=== PATIENT | male | born 1985 | race Caucasian/White ===

== ENCOUNTER 2024-01-12 07:44 | Emergency (ER) | payer SELFPAY ==
[2024-01-12] VITALS (10 sets, daily range): BP systolic 129–142; BP diastolic 87–98; PULSE 85–121; RESP 18; TEMP 37.3; O2SAT 95–99; BMI 39.5
--- NOTE | 2024-01-12 08:35 | DI.RAD.S_ITS ---
PROCEDURE: XR CHEST 1V INDICATIONS: suspected sepsis TECHNIQUE: One view of the chest was acquired. COMPARISON: None. FINDINGS: Surgical changes and devices: None. Lungs and pleura: Lungs are clear. No pleural effusions or pneumothorax. Mediastinum: Mediastinal contours appear normal. Heart size is normal. Bones and chest wall: No suspicious bony lesions. Overlying soft tissues appear unremarkable. IMPRESSION: No acute cardiopulmonary abnormality is seen. Dictated by: Lidia Alamo M.D. on 01/12/2024 at 9:43 Approved by: Lidia Alamo M.D. on 01/12/2024 at 9:43
--- NOTE | 2024-01-12 08:55 | ED.SKABFB ---
HPI - Skin/Abscess/Foreign Bdy General Chief complaint: Skin/Abscess/Foreign Body Stated complaint: abscess/cellulitis close to rectum Time Seen by Provider: 01/12/24 07:57 Source: patient Mode of arrival: Ambulatory Limitations: no limitations History of Present Illness HPI narrative: Patient 38-year-old male who has a history of pilonidal cyst rectal abscess requiring hospitalization and surgery presenting today with ongoing rectal abscess. He reports that this is similar to when he was hospitalized in 2014. Over the last 4 days he has had increasing pain swelling and drainage of his right buttock. He is currently diaphoretic but denies any fever. He does have remote history of opiate abuse he reports that for a number of years he abused prescription drugs he prefers not to have any opiates unless absolutely necessary. Currently afebrile. He reports that this time swelling in his buttock does not extend into his genitals previously went into his genitals. He was seen at walk-in clinic on January 09 and started on Keflex Related Data Home Medications Medication Instructions Recorded Confirmed albuterol sulfate 90 mcg/actuation 2 puff inhalation Q4-6H PRN 01/09/24 01/09/24 aerosol inhaler (Ventolin HFA) Previous Rx's Medication Instructions Recorded cephalexin 500 mg capsule 500 mg PO Q12H Cellulitis 10 days 01/09/24 #20 caps cephalexin 500 mg capsule 500 mg PO QID #40 caps 01/12/24 sulfamethoxazole 800 1 tab PO BID 10 days #20 tabs 01/12/24 mg-trimethoprim 160 mg tablet (Bactrim DS) Allergies Allergy/AdvReac Type Severity Reaction Status Date / Time No Known Drug Allergies Allergy Verified 01/12/24 08:34 Patient History Social History Smoking Status: Former smoker Smoking Status: Former smoker alcohol intake frequency: 3 or more drinks per day Substance Use Type: marijuana Exam Initial Vital Signs Initial Vital Signs: Vital Signs Pulse Rate 121 H 01/12/24 08:25 Pulse Oximetry 98 01/12/24 08:25 GENERAL: Alert 38-year-old male appears in pain mildly diaphoretic HEENT: Head atraumatic,EOMI, pupils reactive, face symmetric, [moist] mucous membranes [EARS:] [Tympanic membranes visualized, no erythema or bulging, no hemotympanum] [PHARYNX:] [No erythema, no tonsillar exudate, no cervical lymphadenopathy] CARDIOVASCULAR: Regular rate and rhythm without murmurs, rubs or gallops. RESPIRATORY: Breath sounds equal bilaterally, no wheezes rales or rhonchi. ABDOMEN: Soft, nontender. Normoactive bowel sounds all 4 quadrants. No guarding or rebound. [RECTAL:] [Hemoccult-positive, no hemorrhoids, nontender] : No CVA tenderness EXTREMITIES: Normal range of motion, no clubbing or edema. Neurovascularly intact NEUROLOGICAL: Alert and oriented x4.Normal gait and speech. Cranial nerves II through XII grossly intact. [Good [id number], good hhft-ya-gido, strength equal bilaterally, no dysarthria or aphasia, sensation in tact to soft touch bilaterally, no visual changes, no facial droop] SKIN: Right buttock fluctuation drainage Procedures Abscess I/D I&D #1: Site: mari-rectal Side (if applicable): right Local Anesthetic: lidocaine 1% and with epi Amount of anesthesia used (mL): 10 Technique: incised with #11 blade Amount of fluid expressed (mL): 8 Irrigation: No Packing used?: iodoform Course Orders Ordered: Discontinued Medications Sodium Chloride (Normal Saline 0.9%) 1,000 mls @ 1,000 mls/hr IV BOLUS ONE Stop: 01/12/24 09:34 Last Infusion: 01/12/24 10:35 Dose: Infused Documented By: Admin: 01/12/24 09:35 Dose: 1,000 mls/hr Documented By: RB Acetaminophen (Ofirmev) 1,000 mg in 100 mls @ 400 mls/hr IV NOW ONE Stop: 01/12/24 08:58 Last Infusion: 01/12/24 10:01 Dose: Infused Documented By: Admin: 01/12/24 09:35 Dose: 400 mls/hr Documented By: RB Ceftriaxone Sodium 1,000 mg/ (Sodium Chloride) 100 mls @ 200 mls/hr IV NOW ONE Stop: 01/12/24 10:43 Last Infusion: 01/12/24 11:58 Dose: Infused Documented By: Admin: 01/12/24 10:57 Dose: 200 mls/hr Documented By: RB Ketorolac Tromethamine (Ketorolac 30 Mg/Ml Vial) 15 mg IV NOW ONE Stop: 01/12/24 08:45 Last Admin: 01/12/24 09:34 Dose: 15 mg Documented By: RB Ondansetron HCl (Ondansetron 4 Mg/2 Ml Inj) 4 mg IV NOW PRN PRN Reason: Nausea And Vomiting Last Admin: 01/12/24 09:35 Dose: 4 mg Documented By: RB Ondansetron HCl (Ondansetron 4 Mg Odt) 4 mg SL NOW PRN PRN Reason: Nausea And Vomiting Vital Signs Vital signs: Vital Signs - 8 hr 01/12/24 08:25 01/12/24 08:28 01/12/24 08:30 Temperature 99.2 F Pulse Rate 121 H 116 H Respiratory Rate 18 Blood Pressure 136/87 140/94 H Pulse Oximetry 98 99 Oxygen Delivery Method Room Air 01/12/24 08:30 01/12/24 09:00 01/12/24 09:30 Temperature Pulse Rate 107 H 100 H 97 H Respiratory Rate Blood Pressure Pulse Oximetry 97 97 99 Oxygen Delivery Method 01/12/24 09:46 01/12/24 09:46 01/12/24 10:00 Temperature Pulse Rate 97 H 89 Respiratory Rate Blood Pressure 138/98 H Pulse Oximetry 97 97 Oxygen Delivery Method 01/12/24 10:00 01/12/24 10:30 01/12/24 10:30 Temperature Pulse Rate 92 H Respiratory Rate Blood Pressure 130/90 129/96 H Pulse Oximetry 98 Oxygen Delivery Method MDM - Skin/Abscess/Foreign Bdy Lab Data 01/12/24 09:10 01/12/24 09:10 Labs: Lab Results 01/12/24 Range/Units 09:10 WBC 11.4 H (4.5-11.0) X10^3/uL RBC 4.69 (4.5-5.9) X10^6/uL Hgb 15.3 (13.5-17.5) g/dL Hct 43.7 (41-53) % MCV 93.1 (80-100) fL MCH 32.6 (26-34) PG MCHC 35.0 (30-36) % RDW 12.7 (11.6-14.8) % Plt Count 309 (150-400) X10^3/uL Neut % (Auto) 80.6 H (50-75) % Lymph % (Auto) 10.2 L (25-40) % [place] % (Auto) 8.6 (3-14) % Eos % (Auto) 0.4 L (2-4) % Baso % (Auto) 0.2 (0-2) % Neut # (Auto) 9200 H (4388-0729) /uL Lymph # (Auto) 1200 (0180-7562) /uL [place] # (Auto) 1000 H (0-900) /uL Eos # (Auto) 0 (0-450) /uL Baso # (Auto) 0 (0-100) /uL PT 12.8 H (9.4-12.5) SECONDS INR 1.1 (0.9-1.3) APTT 37 H (25.1-36.5) SECONDS Sodium 138 (137-145) mmol/L Potassium 4.0 (3.4-5.1) mmol/L Chloride 103 (98-107) mmol/L Carbon Dioxide 24 (22-32) mmol/L BUN 14 (9-20) mg/dL Creatinine 0.79 (0.66-1.25) mg/dL Estimated GFR > 60 (>60) mL/min BUN/Creatinine Ratio 17.7 (6-22) Glucose 112 H (70-100) mg/dL Lactate 1.1 (0.7-2.1) mmol/L Calcium 10.0 (8.4-10.2) mg/dL Total Bilirubin 1.1 (0.2-1.3) mg/dL AST 63 H (17-59) IU/L ALT 122 H (<50) IU/L Alkaline Phosphatase 143 H (38-126) U/L Total Protein 8.7 H (6.3-8.2) g/dL Albumin 4.6 (3.5-5.0) g/dL Globulin 4.1 (1.7-4.1) g/dL Albumin/Globulin Ratio 1.1 (1.0-2.8) Lipase 52 (23-300) U/L Procalcitonin 0.07 (<0.5) ng/mL [facility] Narrative Medical decision making narrative: Patient 38-year-old male who presents today with rectal abscess. It does not directly involve the rectum there is no perineal involvement or genital involvement at this time. Blood work has been reviewed WBC 11.4 lactic acid 1.1 liver enzymes are noted to be elevated but normal bilirubin. Patient had a successful I and D with packing placed. Cultures have been sent. He was given 1 dose of Rocephin in the ED he is taking Keflex will add Bactrim for MRSA coverage. I have instructed patient to come back to the ED tomorrow for a wound re-evaluation. At time of discharge he is overall feeling much better. Discharge Plan Departure Patient Disposition: Home Clinical Impression: Abscess of skin or subcutaneous tissue Instructions: DI for Skin Abscess Activity Restrictions/Additional Instructions: *You have been diagnosed with abscess of right buttock *What to do: At this time I recommend that you come to the ED for repeat evaluation tomorrow morning between 7 and 9:00 a.m. as best. I will be here. Continue warm compresses you should continue to have some drainage. I do recommend that you follow-up with surgery to make sure you have a colonoscopy you may require further testing *Continue to take medications as directed Cephalexin 500 mg 4 times a day for 10 days (this is an increased dose from what you were prescribed on the 19) Bactrim 1 tablet twice a day for 10 days Motrin 600 mg every 6 hours if needed for [id number] pain Tylenol 1000 mg every 6 hours if needed for [id number] pain *Follow up with your primary care provider in 2-3 days or call [phone] *Return to ER if you should have increasing fever pain drainage redness [or] any new, worsening or concerning symptoms Prescriptions: New sulfamethoxazole-trimethoprim [Bactrim DS] 800-160 mg tablet 1 tab PO BID 10 Days Qty: 20 0RF cephalexin 500 mg capsule 500 mg PO QID Qty: 40 0RF No Action albuterol sulfate [Ventolin HFA] 90 mcg/actuation HFA aerosol inhaler 2 puff inhalation Q4-6H PRN cephalexin 500 mg capsule 500 mg PO Q12H 10 Days Qty: 20 0RF Referrals: Андрей Escalona MD [Primary Care Provider] - Stand Alone Forms: Patient Portal/API
[2024-01-12 09:33] LABS: Add Manual Diff / Slide Review NO; Basophils Absolute Auto 0 /uL (0-100); Basophils Percent Auto 0.2 % (0-2); Eosinophils Absolute Auto 0 /uL (0-450); Eosinophils Percent Auto 0.4 % (2-4); Hematocrit 43.7 % (41-53); Hemoglobin 15.3 g/dL (13.5-17.5); Lymphocytes Absolute Auto 1200 /uL (1100-4500); Lymphocytes Percent Auto 10.2 % (25-40); Mean Corpuscular Hemoglobin 32.6 PG (26-34); Mean Corpuscular Volume 93.1 fL (80-100); Monocytes Absolute Auto 1000 /uL (0-900); Monocytes Percent Auto 8.6 % (3-14); Neutrophils Absolute Auto 9200 /uL (1500-7000); Neutrophils Percent Auto 80.6 % (50-75); Platelet Count 309 X10^3/uL (150-400); Red Blood Cell Count 4.69 X10^6/uL (4.5-5.9); Red Cell Distribution Width 12.7 % (11.6-14.8); White Blood Cell Count 11.4 X10^3/uL (4.5-11.0)
[2024-01-12] MEDS: KETOROLAC 30 MG/ML VIAL 15 MG IV (09:34)
[2024-01-12] MEDS: SODIUM CHLORIDE 0.9% 1,000 ML 1000 ML IV (09:35)
[2024-01-12] MEDS: ONDANSETRON 4 MG/2 ML INJ IV (09:35)
[2024-01-12] MEDS: ACETAMINOPHEN IV 1,000 MG/100 ML VIAL 400 MG IV (09:35)
[2024-01-12 09:37] LABS: INR 1.1 (0.9-1.3); Prothrombin Time 12.8 SECONDS (9.4-12.5)
[2024-01-12 09:40] LABS: PTT Partial Thromboplastin Tim 37 SECONDS (25.1-36.5)
[2024-01-12 09:54] LABS: Alanine Aminotransferase 122 IU/L (<50); Albumin 4.6 g/dL (3.5-5.0); Albumin Globulin Ratio 1.1 (1.0-2.8); Alkaline Phosphatase 143 U/L (38-126); Aspartate Aminotransferase 63 IU/L (17-59); BUN Creatinine Ratio 17.7 (6-22); Bilirubin Total 1.1 mg/dL (0.2-1.3); Blood Urea Nitrogen 14 mg/dL (9-20); Carbon Dioxide 24 mmol/L (22-32); Chloride 103 mmol/L (98-107); Estimated Glomerular Filt Rate > 60 mL/min (>60); Globulin 4.1 g/dL (1.7-4.1); Glucose 112 mg/dL (70-100); HEMOLYSIS < 15 (0-50); Lactate (Lactic Acid) 1.1 mmol/L (0.7-2.1); Lipase 52 U/L (23-300); Sodium 138 mmol/L (137-145); Total Protein 8.7 g/dL (6.3-8.2)
[2024-01-12 10:11] LABS: Procalcitonin 0.07 ng/mL (<0.5)
[2024-01-12] MEDS: cefTRIAXone 1,000 MG in SODIUM CHLORIDE 0.9% 100 ML 200 MG IV (10:57)
== END 2024-01-12 12:04 | disposition home or self-care (01) ==
PROVIDERS: Emergency Provider Emergency Medicine; PCP Family Medicine
DX: K61.1 Rectal abscess (principal)
CPT/HCPCS: 10060; 36415; 71045; 80053; 83605; 83690; 84145; 85025; 85610; 85730; 87040; 87070; 87147; 87205; 96365; 96367; 96375; 99284; J0136; J0696; J1885; J2405